=== PATIENT | male | born 1955 | race Caucasian/White ===

== ENCOUNTER 2016-10-03 03:38 | Emergency (ER) | payer OTHER ==
[~2016-10-03] VITALS: Ht 182.9 cm; Wt 105.8 kg
[2016-10-03] MEDS ORDERED: OXYMETAZOLINE HCL 0.05% NA SPR 15 ML BTL ONE (03:46)
[2016-10-03 03:51] VITALS: TEMP 36.4; Ht 182.9 cm; Wt 105.8 kg
[2016-10-03] MEDS ORDERED: LORAZEPAM 2 MG/ML 1 ML VIAL IV STA (04:21)
--- NOTE | 2016-10-03 04:22 | EMERGENCY ROOM VISIT NOTE ---
History Report prepared by Vitaly: Heidy Finney Under the Supervision of: Dr. Marilee Torres M.D. First contact with patient: 03:54 Chief Complaint: NOSE BLEED (MINOR) Stated Complaint: NOSEBLEED History of Present Illness The patient is a 61 year old male who presents to the Emergency Room via EMS with complaints of a worsening nose bleed with onset this evening. He states that he sneezed twice this evening. After sneezing, his nose started to bleed. The patient takes one aspirin daily, with no stated reason for this. The patient 's states the patient has not been to a PCP in years. He denies a history of nasal surgeries. Source of History: patient Onset: this evening Position: nose Quality: other (nose bleed) Timing: worsening Note: The patient sneezed twice tonight. Review of Systems See HPI for pertinent positives & negatives. A total of 10 systems reviewed and were otherwise negative. Past Medical & Surgical Medical Problems: (1) No Known Active Medical Problems Family History No pertinent family history Social History Smoking Status: Former Smoker Drug Use: none Marital Status: Housing Status: lives with family Current/Historical Medications Scheduled Amoxicillin (Amoxil), 500 MG PO TID Multiple Vitamins W/ Minerals (Alive [employer]), 1 TAB PO DAILY Allergies Uncoded Allergies: FEATHERS (Adverse Reaction, Intermediate, " FLU SYMPTOMS", 10/03/16) FISH/GREEN BEANS/ORANGES/BANANAS (Adverse Reaction, Intermediate, " FLU SYMPTOMS", 10/03/16) Physical Exam Vital Signs Date Time Temp Pulse Resp B/P Pulse Ox O2 Delivery O2 Flow Rate FiO2 10/03/16 05:44 108 20 159/102 97 Room Air 10/03/16 04:51 83 24 145/93 97 Room Air 10/03/16 03:51 36.4 115 26 154/122 97 Room Air Physical Exam Vital signs reviewed. Exam is limited due to patient cooperation. General: Well-appearing male, in no significant distress. HEENT: No scleral icterus, PERRLA, neck supple. Atraumatic. Active bleeding from left naris, questionable right naris. Suspect active bleeding in the posterior oropharynx but patient unable to cooperate with thorough exam. Cardiovascular: Regular rate and rhythm, no extra sounds. Pulmonary: Clear to auscultation bilaterally, normal work of breathing. Abdomen: Soft, nontender, nondistended, positive bowel sounds. Musculoskeletal: Atraumatic, no peripheral edema. Neurologic: Patient awake alert and oriented x 3, full strength in all 4 extremities. Cranial nerves 2 through 12 grossly intact. Skin: Warm, dry, no rash Medical Decision & Procedures Laboratory Results 10/03/16 04:40 Red Blood Count 4.50, Mean Corpuscular Volume 97.3, Mean Corpuscular Hemoglobin 35.1, Mean Corpuscular Hemoglobin Concent 36.1, Mean Platelet Volume 9.3, Neutrophils (%) (Auto) 78.6, Lymphocytes (%) (Auto) 15.0, Monocytes (%) (Auto) 4.7, Eosinophils (%) (Auto) 0.8, Basophils (%) (Auto) 0.6, Neutrophils # (Auto) 9.29, Lymphocytes # (Auto) 1.77, Monocytes # (Auto) 0.55, Eosinophils # (Auto) 0.10, Basophils # (Auto) 0.07 10/03/16 04:40 Test 10/03/16 04:40 White Blood Count 11.81 K/uL (4.8-10.8) Red Blood Count 4.50 M/uL (4.7-6.1) Hemoglobin 15.8 g/dL (14.0-18.0) Hematocrit 43.8 % (42-52) Mean Corpuscular Volume 97.3 fL (80-100) Mean Corpuscular Hemoglobin 35.1 pg (25-34) Mean Corpuscular Hemoglobin Concent 36.1 g/dl (32-36) Platelet Count 281 K/uL (130-400) Mean Platelet Volume 9.3 fL (7.4-10.4) Neutrophils (%) (Auto) 78.6 % Lymphocytes (%) (Auto) 15.0 % Monocytes (%) (Auto) 4.7 % Eosinophils (%) (Auto) 0.8 % Basophils (%) (Auto) 0.6 % Neutrophils # (Auto) 9.29 K/uL (1.4-6.5) Lymphocytes # (Auto) 1.77 K/uL (1.2-3.4) Monocytes # (Auto) 0.55 K/uL (0.11-0.59) Eosinophils # (Auto) 0.10 K/uL (0-0.5) Basophils # (Auto) 0.07 K/uL (0-0.2) RDW Standard Deviation 44.7 fL (36.4-46.3) RDW Coefficient of Variation 12.6 % (11.5-14.5) Immature Granulocyte % (Auto) 0.3 % Immature Granulocyte # (Auto) 0.03 K/uL (0.00-0.02) Prothrombin Time 10.5 SECONDS (9.0-12.0) Prothromb Time International Ratio 1.0 (0.9-1.1) Activated Partial Thromboplast Time 24.3 SECONDS (21.0-31.0) Partial Thromboplastin Ratio 0.9 Anion Gap 13.0 mmol/L (3-11) Est Creatinine Clear Calc Drug Dose 88.7 ml/min Estimated GFR () 83.5 Estimated GFR (Non- 72.1 BUN/Creatinine Ratio 13.1 (10-20) Calcium Level 8.8 mg/dl (8.5-10.1) Total Bilirubin 0.4 mg/dl (0.2-1) Direct Bilirubin 0.2 mg/dl (0-0.2) Aspartate Amino Transf (AST/SGOT) 24 U/L (15-37) Alanine Aminotransferase (ALT/SGPT) 46 U/L (12-78) Alkaline Phosphatase 111 U/L (45-117) Total Protein 7.4 gm/dl (6.4-8.2) Albumin 4.0 gm/dl (3.4-5.0) Laboratory results per my review. Medications Administered Medications (Trade) Dose Ordered Sig/Lc Route Start Time Stop Time Status Last Admin Dose Admin Oxymetazoline HCl (Afrin 0.05% Nasal [place]) 75 sprays STK-MED ONCE .ROUTE 10/03/16 03:46 10/03/16 03:48 DC 10/03/16 03:57 75 SPRAYS Lorazepam (Ativan Inj) 1 mg NOW STAT IV 10/03/16 04:21 10/03/16 04:22 DC 10/03/16 04:45 1 MG Amoxicillin (Amoxil Cap) 500 mg NOW STAT PO 10/03/16 05:42 10/03/16 05:43 DC 10/03/16 05:52 500 MG Acetaminophen (Tylenol Tab) 1,000 mg STK-MED ONCE PO 10/03/16 05:47 10/03/16 05:50 DC 10/03/16 05:51 1,000 MG Procedure Anterior Nasal Packing Indication: epistaxis Verbal consent obtained. Risks and benefits were explained with the usual customary discussion. A time out was taken. The left naris was prepped with Afrin. A 7.5-cm nasal balloon was placed in a standard fashion. The patient tolerated this well. Hemostasis was achieved. No complications. ED Course 0355: Past medical records reviewed. The patient was evaluated in room B12. A complete history and physical examination was performed. 0346: Afrin 75 sprays INH 0421: Ativan 1 mg IV 0454: I reevaluated the patient. His heart rate and blood pressure are down and the nosebleed has stopped. 0542: Amoxil Cap 500 mg PO 0547: Tylenol Tab 1000 mg PO 0548: Upon reevaluation, the patient appeared to have improvement of his symptoms. I discussed findings with the patient. He verbalized agreement of the treatment plan. The patient was discharged home. Medical Decision The patient is a 61 year old male who presents to the ED with complaints of a nosebleed. Differentials include: Etiologies such as anterior epistaxis, coagulopathy, traumatic injury, fracture, septal hematoma, posterior epistaxis as well as other pathologies were entertained. This pt was evaluated and appeared to be in some distress. Pt was spitting blood on the floor "as I can't aim well." He appeared to be restless and was unable to sit back for exam. Afrin nasal spray and a clamp was applied. Pt continued to bleed. A 5.5 cm anterior packing was applied to the left nares without success in stopping the bleeding. After 15 min or so, a 7.5 cm nasal balloon was applied and inflated. Pt tolerated this well. He was observed and the bleeding stopped. Lab work reveals a stable H/H and plt count. Pt was much improved after a dose of ativan. He was advised to f/u with PCP ITZEL for BP management, case management will assist with an appt. Pt was given a dose of amoxicillin 500 mg and a Rx. He will return in 2 days for packing removal. He will return sooner for worsening of symptoms or any medical concerns. Impression Primary Impression: Epistaxis Scribe Attestation The scribe's documentation has been prepared under my direction and personally reviewed by me in its entirety. I confirm that the note above accurately reflects all work, treatment, procedures, and medical decision making performed by me. Departure Information Dispostion Home / Self-Care Prescriptions Amoxicillin (AMOXIL) 500 Mg Cap 500 MG PO TID, #21 CAP Prov: Marilee Torres M.D. 10/03/16 Referrals No Doctor, Assigned (PCP) Forms HOME CARE DOCUMENTATION FORM, IMPORTANT VISIT INFORMATION, WORK / SCHOOL INSTRUCTIONS Patient Instructions My [facility] Additional Instructions Diagnosis: Epistaxis Stop the aspirin. Leave the nasal packing in place for the next 48 hours. Return to the emergency department on Tuesday morning for packing removal. Amoxicillin 500 mg 3 times a day for the next 3 days. Do not pick or blow your nose. Use a humidifier in your bedroom. Return to the emergency department sooner for worsening of symptoms or any medical concerns.
[2016-10-03 04:57] LABS: BASO % 0.6 %; BASO ABS # 0.07 K/uL (0-0.2); COMPLETE YES; EOS % 0.8 %; HEMATOCRIT 43.8 % (42-52); IG% 0.3 %; LYMPH ABS # 1.77 K/uL (1.2-3.4); MEAN CELL VOLUME 97.3 fL (80-100); MEAN CORPUSCULAR HEMOGLOBIN 35.1 pg (25-34); MEAN CORPUSCULAR HGB CONC 36.1 g/dl (32-36); MEAN PLATELET VOLUME 9.3 fL (7.4-10.4); MONO % 4.7 %; NEUT % 78.6 %; PLATELET COUNT 281 K/uL (130-400); WHITE BLOOD COUNT 11.81 K/uL (4.8-10.8)
[2016-10-03 05:10] LABS: PARTIAL THROMBOPLASTIN RATIO 0.9; PROTHROMBIN TIME (PATIENT) 10.5 SECONDS (9.0-12.0)
[2016-10-03 05:11] LABS: BUN/CREATININE RATIO 13.1 (10-20); CALCIUM 8.8 mg/dl (8.5-10.1); CREATININE 1.1 mg/dl (0.60-1.40); POTASSIUM 3.5 mmol/L (3.5-5.1)
[2016-10-03] MEDS ORDERED: ASPI81TA28 PO (05:21)
[2016-10-03] MEDS ORDERED: AMOXICILLIN 250 MG CAP PO STA (05:42)
[2016-10-03 05:44] VITALS: BP 159/102; PULSE 108; O2SAT 97
[2016-10-03] MEDS ORDERED: AMOX500C3 PO (05:45)
[2016-10-03] MEDS ORDERED: ACETAMINOPHEN 500 MG TAB PO ONE (05:47)
[2016-10-05] MEDS ORDERED: [UNRECOGNIZED DRUG - CODE] PO (05:20)
== END 2016-10-03 05:59 | disposition home or self-care (01) ==
LOC: EDBD 03:38 → C.EDB 03:39
DX: R04.0 Epistaxis (principal); Z87.891 Personal history of nicotine dependence; Z91.09 Other allergy status, other than to drugs and biological substances

== ENCOUNTER 2016-10-05 11:35 | Emergency (ER) | payer OTHER ==
[~2016-10-05] VITALS: Ht 182.9 cm; Wt 101.4 kg
[~2016-10-05 11:35] MED LIST: AMOX500C3 PO; ASPI81TA28 PO; [UNRECOGNIZED DRUG - CODE] PO
[2016-10-05 11:39] VITALS: TEMP 36.9; Ht 182.9 cm; Wt 101.4 kg
--- NOTE | 2016-10-05 11:59 | EMERGENCY ROOM VISIT NOTE ---
ED Visit Note First contact with patient: 11:42 CHIEF COMPLAINT: Nasal packing removal HISTORY OF PRESENT ILLNESS: This 51-year-old male patient presents to the emergency department ambulatory for removal of the rapid Rhino that was placed 2 days ago. The patient states he feels pressure in the nose but has not had any significant problems. He is currently taking the prescribed amoxicillin. He denies any recurrence of bleeding or a sensation of bleeding down the back of his throat. REVIEW OF SYSTEMS: A 10 system review of systems was completed with positives and pertinent negatives listed in the HPI. ALLERGIES: No known drug allergies MEDICATIONS: Unchanged from previous PMH: Unchanged from previous SOCIAL HISTORY: The patient does not smoke. He lives locally PHYSICAL EXAM: VITALS: Vitals are noted on the nurse's note and reviewed by myself. Vital signs stable. GENERAL: This is a 61-year-old male, in no acute distress, nondiaphoretic, well- developed well-nourished. HEENT: Head is normocephalic and atraumatic. Pupils equal round reactive to light. There is a rapid Rhino in place in the left naris. There is no active bleeding. There is no blood in the posterior pharynx. EMERGENCY DEPARTMENT COURSE: The patient was seen and examined. The balloon was deflated and the rapid Rhino was easily removed. The patient was monitored for a short time but did not have any recurrence of bleeding. He should follow- up with his family doctor for further evaluation and management. He should return with worsening symptoms. Current/Historical Medications Scheduled Amoxicillin (Amoxil), 500 MG PO TID Multiple Vitamins W/ Minerals (Alive [employer]), 1 TAB PO DAILY Allergies Uncoded Allergies: FEATHERS (Adverse Reaction, Intermediate, " FLU SYMPTOMS", 10/03/16) FISH/GREEN BEANS/ORANGES/BANANAS (Adverse Reaction, Intermediate, " FLU SYMPTOMS", 10/03/16) Vital Signs Date Time Temp Pulse Resp B/P Pulse Ox O2 Delivery O2 Flow Rate FiO2 10/05/16 12:27 101 18 174/112 97 10/05/16 11:39 36.9 116 20 119/117 97 Room Air Departure Information Impression Primary Impression: Encounter for removal of nasal packing Dispostion Home / Self-Care Condition GOOD Referrals Earl Lebron M.D. (PCP) Patient Instructions ED Nasal Packing Anterior Removable, My [facility] Additional Instructions Do not blow or pick your nose Return if any recurrence of bleeding Otherwise, recheck with your family doctor at the end of the week or next week
[2016-10-05 12:27] VITALS: BP 174/112; PULSE 101; O2SAT 97
== END 2016-10-05 12:28 | disposition home or self-care (01) ==
LOC: C.EDB 11:37 → C.EDD 12:28
DX: Z48.00 Encounter for change or removal of nonsurgical wound dressing (principal)

== ENCOUNTER → 2016-10-28 | Outpatient (CLI) | payer OTHER ==
[~2016-10-28] MED LIST changes: -AMOX500C3 PO; -ASPI81TA28 PO
[2016-10-28 18:10] LABS: BLOOD UREA NITROGEN 13 mg/dl (7-18); BUN/CREATININE RATIO 13.1 (10-20); CALCIUM 9.3 mg/dl (8.5-10.1); CARBON DIOXIDE 29 mmol/L (21-32); CHLORIDE 101 mmol/L (98-107); GLUCOSE 113 mg/dl (70-99); POTASSIUM 4.2 mmol/L (3.5-5.1); SODIUM 140 mmol/L (136-145)
== END | disposition home or self-care (01) ==
LOC: C.LABBFT 14:31
PROVIDERS: ATTEND Internal Medicine
DX: I10 Essential (primary) hypertension (principal)

== ENCOUNTER → 2016-12-21 | Outpatient (CLI) | payer OTHER ==
--- NOTE | 2016-12-21 15:32 | DIAGNOSTIC IMAGING REPORT ---
RIGHT LOWER EXTREMITY VENOUS DOPPLER CLINICAL HISTORY: Right leg pain and swelling. COMPARISON STUDY: No previous studies for comparison. TECHNIQUE: Sonography of the deep venous system of the right lower extremity was performed. Compression and augmentation were evaluated. FINDINGS: The right common femoral, superficial femoral and popliteal veins were compressible. Augmentation was normal. Flow was shown within the deep calf vessels. IMPRESSION: No evidence of deep venous thrombus within the right lower extremity. Electronically signed by: Davon Ramos M.D. 12/21/2016 3:31 PM Dictated Date/Time: 12/21/2016 3:31 PM
== END | disposition home or self-care (01) ==
LOC: C.ULTR 15:07
PROVIDERS: ATTEND Internal Medicine
DX: M79.89 Other specified soft tissue disorders (principal)

== ENCOUNTER 2017-08-10 07:52 | Emergency (ER) | payer OTHER ==
[~2017-08-10] VITALS: Ht 182.9 cm; Wt 107.9 kg
[2017-08-10 07:59] VITALS: TEMP 36.7; Ht 182.9 cm; Wt 107.9 kg
[2017-08-10 08:01] VITALS: O2SAT 99
--- NOTE | 2017-08-10 08:12 | EMERGENCY ROOM VISIT NOTE ---
History Report prepared by Vitaly: Manyd Hodgson Under the Supervision of: Dr. Luis Antonio Spears M.D. First contact with patient: 07:56 Chief Complaint: SYNCOPE Stated Complaint: SYNCOPE History of Present Illness The patient is a 62 year old male who presents to the Emergency Room with complaints of an episode of syncope occurring just prior to arrival. Per nursing staff, the patient was woken up this morning by a severe leg cramp. Per nursing, the patient then got out of bed quickly and had two syncopal episodes. The patient does not remember passing out. He notes getting intermittent leg cramps but denies ever having a syncopal episode before. He denies any dizziness or lightheadedness prior to passing out. The patient is a former smoker and quit 5-6 years ago. Source of History: patient Onset: just prior to arrival Position: other (generalized) Quality: other (syncoper) Timing: other (episode) Associated Symptoms: + LOC Note: Pt notes leg cramps but denies any dizziness or lightheadedness prior to passing out Review of Systems All systems have been listed, reviewed, and are negative other than those previously mentioned. Please see Additional Medical History Sheet. Past Medical & Surgical Medical Problems: (1) No Known Active Medical Problems Family History No pertinent family history Social History Smoking Status: Former Smoker Drug Use: none Marital Status: Housing Status: lives with family Current/Historical Medications Scheduled Amlodipine (Norvasc), 10 MG PO DAILY Hctz/Losartan (Hyzaar 25MG/100MG), 1 TAB PO DAILY Multiple Vitamins W/ Minerals (Alive [employer]), 1 TAB PO DAILY Potassium Chloride Microencaps (Potassium Chloride Er), 10 MEQ PO BID Allergies Uncoded Allergies: FEATHERS (Adverse Reaction, Intermediate, " FLU SYMPTOMS", 10/03/16) FISH/GREEN BEANS/ORANGES/BANANAS (Adverse Reaction, Intermediate, " FLU SYMPTOMS", 10/03/16) Physical Exam Vital Signs Date Time Temp Pulse Resp B/P (MAP) Pulse Ox O2 Delivery O2 Flow Rate FiO2 08/10/17 10:17 80 19 155/102 97 08/10/17 09:16 91 19 152/83 97 Room Air 08/10/17 08:01 99 Room Air 08/10/17 08:00 87 08/10/17 07:59 36.7 87 19 177/87 99 Room Air Physical Exam GENERAL: Patient awake, alert, oriented x 3. Patient follows commands. Patient does not appear toxic. Patient is adequately hydrated and well- nourished. SKIN: No erythema, pallor, cyanosis or rash HEENT: Normal head, pupils equal, reactive to light and accommodation. Ears normal. Oral cavity and posterior pharynx appear normal. Neck: Without adenopathy, no neck vein distention. LUNGS: Clear to auscultation. No wheezes, no rales, no rhonchi. HEART: No murmurs. No gallops. No rubs ABDOMEN: Obese. No masses, no rebound, no hepatomegaly or splenomegaly. EXTREMITIES: No signs of trauma. No pedal or pretibial edema. No calf or thigh tenderness. NEUROLOGIC: Cranial nerves II-XII within normal limits. No gross motor sensory function deficits. Medical Decision & Procedures ER Provider Diagnostic Interpretation: Radiology results as stated below per my review and radiologist interpretation: CHEST 2 VIEWS ROUTINE FINDINGS: Cardiac silhouette mildly enlarged. Right anterior basilar paramediastinal opacity likely a prominent pericardial fat pad. Lungs and pleural spaces essentially clear. Mild prominence of upper lobe pulmonary vasculature. Degenerative changes of the thoracic spine. Upper abdomen normal. IMPRESSION: 1. Mild cardiomegaly with suggestion of mild volume overload. No adriel pulmonary edema. Electronically signed by: Christopher Angelo M.D. Laboratory Results 08/10/17 08:25 08/10/17 08:25 Test 08/10/17 08:25 Red Blood Count 4.20 M/uL (4.7-6.1) Mean Corpuscular Volume 98.1 fL (80-100) Mean Corpuscular Hemoglobin 34.3 pg (25-34) Mean Corpuscular Hemoglobin Concent 35.0 g/dl (32-36) RDW Standard Deviation 46.8 fL (36.4-46.3) RDW Coefficient of Variation 13.2 % (11.5-14.5) Mean Platelet Volume 8.9 fL (7.4-10.4) Anion Gap 12.0 mmol/L (3-11) Est Creatinine Clear Calc Drug Dose 96.2 ml/min Estimated GFR () 92.0 Estimated GFR (Non- 79.3 BUN/Creatinine Ratio 17.3 (10-20) Calcium Level 8.7 mg/dl (8.5-10.1) Total Bilirubin 0.4 mg/dl (0.2-1) Aspartate Amino Transf (AST/SGOT) 24 U/L (15-37) Alanine Aminotransferase (ALT/SGPT) 36 U/L (12-78) Alkaline Phosphatase 105 U/L (45-117) Troponin I < 0.015 ng/ml (0-0.045) Total Protein 7.1 gm/dl (6.4-8.2) Albumin 3.6 gm/dl (3.4-5.0) Globulin 3.5 gm/dl (2.5-4.0) Albumin/Globulin Ratio 1.0 (0.9-2) Laboratory results as stated above per my review. Medications Administered Medications (Trade) Dose Ordered Sig/Lc Route Start Time Stop Time Status Last Admin Dose Admin Potassium Chloride (Klor-Con Tab) 20 meq ONE ONCE PO 08/10/17 09:45 08/10/17 09:46 DC 08/10/17 09:49 20 MEQ ECG Indication: syncope Rate (beats per minute): 82 Rhythm: normal sinus Findings: left axis deviation, other (non-specific ST segment abnormality. U wave seen in v3-v6) ED Course 0757: Past medical records reviewed. The patient was evaluated in room B6. A complete history and physical examination was performed. 0945: Ordered Potassium Chloride 20 meq PO. 0950: Family at bedside, the patient is feeling better. I updated him on his test results. 1018: Upon reevaluation, the patient appeared to have improvement of his symptoms. I discussed today's findings with him. He verbalized agreement of the treatment plan. The patient was discharged home. Medical Decision I considered multiple diagnoses including vasovagal syncope, leg cramping, arrhythmia, myocardial infarction, and metabolic disorder. 62-year-old male had a near syncopal episode this morning after having a severe left leg cramp. The patient denies any palpitations chest pain shortness of breath or other cardiovascular/cardiopulmonary symptoms. Patient has a history of hypertension. Patient is on an antihypertensive/diuretic. Multiple labs, EKG and imaging were obtained. Please see above. The patient's potassium is 2.7. The rest of his labs are relatively normal including a troponin. He remained asymptomatic while here in the ED. The patient appears to have had a vasovagal episode following the cramp in his leg. This may be related to his hypokalemia. The patient was given potassium here which he will need to continue at home. The patient will also require follow-up by his family physician. Patient will need to have his hypokalemia reevaluated. Medication Reconcilliation Current Medication List: was personally reviewed by me Blood Pressure Screening Patient's blood pressure: Elevated blood pressure Blood pressure disposition: Referred to PCP Impression Primary Impression: Vasovagal syncope Additional Impressions: Hypokalemia Leg cramp Scribe Attestation The scribe's documentation has been prepared under my direction and personally reviewed by me in its entirety. I confirm that the note above accurately reflects all work, treatment, procedures, and medical decision making performed by me. Departure Information Dispostion Home / Self-Care Prescriptions Potassium Chloride Microencaps (POTASSIUM CHLORIDE ER) 10 Meq Tab 10 MEQ PO BID for 30 Days, #60 TABS Prov: Luis Antonio Spears M.D. 08/10/17 Referrals Earl Lebron M.D. (PCP) Forms HOME CARE DOCUMENTATION FORM, IMPORTANT VISIT INFORMATION Patient Instructions Hypokalemia Kenji, My [facility] Additional Instructions Take potassium twice a day for the next 30 days. Follow-up with your family physician within the next 2 weeks. Return here immediately if you have any further fainting episodes. Drink extra fluids. Problem Qualifiers
[2017-08-10 08:35] LABS: HEMATOCRIT 41.2 % (42-52); HEMOGLOBIN 14.4 g/dL (14.0-18.0); MEAN CELL VOLUME 98.1 fL (80-100); MEAN CORPUSCULAR HEMOGLOBIN 34.3 pg (25-34); MEAN PLATELET VOLUME 8.9 fL (7.4-10.4); PLATELET COUNT 286 K/uL (130-400); RED CELL DISTRIBUTION WIDTH CV 13.2 % (11.5-14.5); RED CELL DISTRIBUTION WIDTH SD 46.8 fL (36.4-46.3); WHITE BLOOD COUNT 7.89 K/uL (4.8-10.8)
[2017-08-10] MEDS ORDERED: AMLO10TA3 PO (08:37)
[2017-08-10] MEDS ORDERED: HYZ/10015 PO (08:37)
--- NOTE | 2017-08-10 08:49 | DIAGNOSTIC IMAGING REPORT ---
CHEST 2 VIEWS ROUTINE CLINICAL HISTORY: 62 years-old Male presenting with syncope. TECHNIQUE: PA and lateral views of the chest were obtained. COMPARISON: None. FINDINGS: Cardiac silhouette mildly enlarged. Right anterior basilar paramediastinal opacity likely a prominent pericardial fat pad. Lungs and pleural spaces essentially clear. Mild prominence of upper lobe pulmonary vasculature. Degenerative changes of the thoracic spine. Upper abdomen normal. IMPRESSION: 1. Mild cardiomegaly with suggestion of mild volume overload. No adriel pulmonary edema. Electronically signed by: Christopher Angelo M.D. 08/10/2017 8:48 AM Dictated Date/Time: 08/10/2017 8:46 AM
[2017-08-10 08:52] LABS: ALBUMIN 3.6 gm/dl (3.4-5.0); ALT/SGPT 36 U/L (12-78); BLOOD UREA NITROGEN 18 mg/dl (7-18); CALCIUM 8.7 mg/dl (8.5-10.1); CARBON DIOXIDE 24 mmol/L (21-32); CREATININE 1.01 mg/dl (0.60-1.40); GLUCOSE 136 mg/dl (70-99); POTASSIUM 2.7 mmol/L (3.5-5.1); SODIUM 135 mmol/L (136-145)
[2017-08-10 08:56] LABS: ALKALINE PHOSPHATASE 105 U/L (45-117); AST/SGOT 24 U/L (15-37); TOTAL PROTEIN 7.1 gm/dl (6.4-8.2)
[2017-08-10] MEDS ORDERED: POTA10TA32 PO (09:42)
[2017-08-10] MEDS ORDERED: POTASSIUM CHLORIDE 20 MEQ TABCR PO ONE (09:45)
[2017-08-10 10:17] VITALS: BP 155/102; PULSE 80; O2SAT 97
== END 2017-08-10 10:21 | disposition home or self-care (01) ==
LOC: EDBD 07:52 → C.EDB 07:53
DX: R55 Syncope and collapse (principal); E87.6 Hypokalemia; R25.2 Cramp and spasm; I10 Essential (primary) hypertension; Z87.891 Personal history of nicotine dependence

== ENCOUNTER → 2017-09-27 | Outpatient (CLI) | payer OTHER ==
[~2017-09-27] MED LIST changes: +AMLO-114 PO; +HYZ/10015 PO; +POTA10TA32 PO
[2017-09-27 17:56] LABS: BLOOD UREA NITROGEN 19 mg/dl (7-18); CALCIUM 9.5 mg/dl (8.5-10.1); CARBON DIOXIDE 28 mmol/L (21-32); CREATININE 1.04 mg/dl (0.60-1.40); GLUCOSE 119 mg/dl (70-99); SODIUM 136 mmol/L (136-145)
== END | disposition home or self-care (01) ==
LOC: C.LABBFT 13:48
PROVIDERS: ATTEND Internal Medicine
DX: E87.6 Hypokalemia (principal)

== ENCOUNTER 2017-12-19 19:48 | Emergency (ER) | payer OTHER ==
[~2017-12-19] VITALS: Ht 182.9 cm; Wt 101.1 kg
[2017-12-19 19:51] VITALS: TEMP 36.5; Ht 182.9 cm; Wt 101.1 kg
[2017-12-19] MEDS ORDERED: MUPIROCIN 2% OINT 22 GM TUBE EXT STA (20:32)
[2017-12-19] MEDS ORDERED: OXYMETAZOLINE HCL 0.05% NA SPR 15 ML BTL ONE (20:45)
[2017-12-19 20:52] LABS: BASO % 0.5 %; BASO ABS # 0.05 K/uL (0-0.2); EOS % 1.8 %; EOS ABS # 0.17 K/uL (0-0.5); HEMATOCRIT 41.6 % (42-52); HEMOGLOBIN 14.8 g/dL (14.0-18.0); IG# 0.03 K/uL (0.00-0.02); LYMPH % 26.8 %; MEAN CELL VOLUME 98.1 fL (80-100); MEAN CORPUSCULAR HEMOGLOBIN 34.9 pg (25-34); MEAN CORPUSCULAR HGB CONC 35.6 g/dl (32-36); MEAN PLATELET VOLUME 8.6 fL (7.4-10.4); MONO % 5.4 %; NEUT % 65.2 %; NEUT ABS # 6.09 K/uL (1.4-6.5); PLATELET COUNT 307 K/uL (130-400); RED CELL DISTRIBUTION WIDTH CV 13.3 % (11.5-14.5); RED CELL DISTRIBUTION WIDTH SD 47.6 fL (36.4-46.3); WHITE BLOOD COUNT 9.34 K/uL (4.8-10.8)
[2017-12-19 21:07] LABS: PTT PATIENT 23.9 SECONDS (21.0-31.0)
[2017-12-19 21:13] LABS: CREATININE 1.17 mg/dl (0.60-1.40); POTASSIUM 3.4 mmol/L (3.5-5.1)
[2017-12-19 21:16] LABS: TOTAL PROTEIN 7.9 gm/dl (6.4-8.2)
--- NOTE | 2017-12-19 21:48 | EMERGENCY ROOM VISIT NOTE ---
History First contact with patient: 20:15 Chief Complaint: NOSE BLEED (MINOR) Stated Complaint: NOSE BLEEDS SINCE TUESDAY History of Present Illness The patient is a 62 year old male who presents to the Emergency Room with complaints of frequent nosebleeds for the last 3 days. It is mainly from the left nostril. He denies being on any anticoagulation. No changes in medications. He denies any lightheadedness or dizziness. He denies any history of frequent nosebleeds. His primary care physician sent him here for further evaluation. He denies any current active bleeding. Review of Systems 6 system review performed and negative unless noted in HPI or below Past Medical/Surgical History Medical Problems: (1) No Known Active Medical Problems Hypertension Family History No pertinent family history Social History Smoking Status: Never Smoker Drug Use: none Marital Status: Housing Status: lives with family Current/Historical Medications Scheduled Amlodipine (Norvasc), 10 MG PO DAILY Hctz/Losartan (Hyzaar 25MG/100MG), 1 TAB PO DAILY Multiple Vitamins W/ Minerals (Alive [employer]), 1 TAB PO DAILY Potassium Chloride Microencaps (Potassium Chloride Er), 10 MEQ PO BID Physical Exam Vital Signs Date Time Temp Pulse Resp B/P (MAP) Pulse Ox O2 Delivery O2 Flow Rate FiO2 12/19/17 21:53 85 18 141/82 96 Room Air 12/19/17 19:51 36.5 99 18 165/84 96 Room Air Physical Exam VITALS: Vitals are noted on the nurse's note and reviewed by myself. Vital signs stable. GENERAL: 62-year-old male, in no acute distress, nondiaphoretic, well-developed well-nourished. SKIN: The skin was without rashes, erythema, edema, or bruising. HEAD: Normocephalic atraumatic. EYES Conjunctivae without injection, sclerae without icterus. Extraocular movements intact. NOSE: Patent, left anterior septum has a small amount of dried blood. No active bleeding noted. Right anterior septum has a small friable area noted. No active bleeding. No septal hematoma. No ecchymosis noted over the bridge of the nose. MOUTH: Mucous membranes moist. No blood in the oropharynx NECK: Supple without nuchal rigidity. No JVD. MUSCULOSKELETAL: Strength 5/5 throughout. NEURO: Patient was alert and oriented to person place and time. Normal sensation to touch. No focal neurological deficits. Medical Decision & Procedures Laboratory Results 12/19/17 20:40 Red Blood Count 4.24, Mean Corpuscular Volume 98.1, Mean Corpuscular Hemoglobin 34.9, Mean Corpuscular Hemoglobin Concent 35.6, Mean Platelet Volume 8.6, Neutrophils (%) (Auto) 65.2, Lymphocytes (%) (Auto) 26.8, Monocytes (%) (Auto) 5.4, Eosinophils (%) (Auto) 1.8, Basophils (%) (Auto) 0.5, Neutrophils # (Auto) 6.09, Lymphocytes # (Auto) 2.50, Monocytes # (Auto) 0.50, Eosinophils # (Auto) 0.17, Basophils # (Auto) 0.05 12/19/17 20:40 Test 12/19/17 20:40 White Blood Count 9.34 K/uL (4.8-10.8) Red Blood Count 4.24 M/uL (4.7-6.1) Hemoglobin 14.8 g/dL (14.0-18.0) Hematocrit 41.6 % (42-52) Mean Corpuscular Volume 98.1 fL (80-100) Mean Corpuscular Hemoglobin 34.9 pg (25-34) Mean Corpuscular Hemoglobin Concent 35.6 g/dl (32-36) Platelet Count 307 K/uL (130-400) Mean Platelet Volume 8.6 fL (7.4-10.4) Neutrophils (%) (Auto) 65.2 % Lymphocytes (%) (Auto) 26.8 % Monocytes (%) (Auto) 5.4 % Eosinophils (%) (Auto) 1.8 % Basophils (%) (Auto) 0.5 % Neutrophils # (Auto) 6.09 K/uL (1.4-6.5) Lymphocytes # (Auto) 2.50 K/uL (1.2-3.4) Monocytes # (Auto) 0.50 K/uL (0.11-0.59) Eosinophils # (Auto) 0.17 K/uL (0-0.5) Basophils # (Auto) 0.05 K/uL (0-0.2) RDW Standard Deviation 47.6 fL (36.4-46.3) RDW Coefficient of Variation 13.3 % (11.5-14.5) Immature Granulocyte % (Auto) 0.3 % Immature Granulocyte # (Auto) 0.03 K/uL (0.00-0.02) Prothrombin Time 10.0 SECONDS (9.0-12.0) Prothromb Time International Ratio 1.0 (0.9-1.1) Activated Partial Thromboplast Time 23.9 SECONDS (21.0-31.0) Partial Thromboplastin Ratio 0.9 Anion Gap 9.0 mmol/L (3-11) Est Creatinine Clear Calc Drug Dose 80.6 ml/min Estimated GFR () 77.0 Estimated GFR (Non- 66.4 BUN/Creatinine Ratio 17.8 (10-20) Calcium Level 9.0 mg/dl (8.5-10.1) Total Bilirubin 0.6 mg/dl (0.2-1) Aspartate Amino Transf (AST/SGOT) 42 U/L (15-37) Alanine Aminotransferase (ALT/SGPT) 59 U/L (12-78) Alkaline Phosphatase 100 U/L (45-117) Total Protein 7.9 gm/dl (6.4-8.2) Albumin 4.0 gm/dl (3.4-5.0) Globulin 3.9 gm/dl (2.5-4.0) Albumin/Globulin Ratio 1.0 (0.9-2) Medications Administered Medications (Trade) Dose Ordered Sig/Lc Route Start Time Stop Time Status Last Admin Dose Admin Oxymetazoline HCl (Afrin 0.05% Nasal [place]) 1 sprays NOW ONCE NA 12/19/17 20:45 12/19/17 20:46 DC 12/19/17 20:41 1 SPRAYS Mupirocin (Bactroban 2% Oint) 1 appln ONE STAT EXT 12/19/17 20:32 12/19/17 20:34 DC 12/19/17 20:32 1 APPLN ED Course The patient was seen and examined Labs are drawn I thoroughly reviewed his workup. He voiced understanding. He was comfortable being discharged home. The patient was given Afrin and Bactroban prior to discharge. Discharge instructions were reviewed, and he was discharged in good condition Medical Decision Differential diagnosis: Anterior epistaxis, posterior epistaxis, thrombocytopenia, coagulopathy, liver failure, anemia, hypertension, allergies This patient is a 62-year-old male that presents to the emergency department with frequent nosebleeds over the last several days. On exam, he did not have any active bleeding. He did have a small amount of dried blood in the left naris. No intervention was taken. Upon further investigation, the patient admits to being outdoors more frequently over the last several days. He also recently turned his air conditioner on. I believe it is likely environmental factors that are causing his frequent nosebleeds. The patient was given Afrin for further bleeding. He was also given Bactroban to apply to the nares twice daily for prevention. The patient was encouraged to keep a humidifier running in his room. If the bleeding persists, he will follow-up with ENT. For any uncontrolled bleeding he will return to the ER This chart was completed in part utilizing [employer] Speech Voice Recognition software. Attempts were made to minimize the grammatical errors, random word insertions, pronoun errors and incomplete sentences. Any formal questions or concerns about the content, text or information contained within the body of this dictation should be directly addressed to the provider for clarification. Impression Primary Impression: Epistaxis Departure Information Dispostion Home / Self-Care Condition GOOD Referrals Earl Lebron M.D. (PCP) Jim Marks MD Patient Instructions My [facility] Additional Instructions You were seen in the emergency department for frequent nosebleeds. There were no significant abnormalities in your blood work. Please apply Bactroban ointment to each nostril twice daily If the nose starts to bleed, please blow out all the clots, then immediately due to sprays of Afrin to each nostril followed by the clamp. Stay in an upright position with a clamp in place for 30 minutes. If this does not stop the bleeding, please return to the emergency department. Please run a humidifier as much as possible, especially in the bedroom If the bleeding persists, please contact the ear nose and throat doctor. A number has been provided. Do not hesitate to return to the emergency department with any new, worsening or concerning symptoms It was a pleasure participating in your care today Work Instructions Return To Work: 2 days
[2017-12-19 21:53] VITALS: BP 141/82; PULSE 85; O2SAT 96
== END 2017-12-19 21:53 | disposition home or self-care (01) ==
LOC: C.EDB 19:49 → C.EDD 21:53
DX: R04.0 Epistaxis (principal); I10 Essential (primary) hypertension; Z79.899 Other long term (current) drug therapy